=== PATIENT | female | born 1995 | race Caucasian/White ===

== ENCOUNTER 2017-09-14 17:07 | Observation (INO) | payer MEDICAID ==
[~2017-09-14] VITALS: Ht 162.6 cm; Wt 111.1 kg
[2017-09-14] MEDS ORDERED: PNV1TABL76 PO (17:49)
[2017-09-14 19:48] VITALS: BP 99/67
[2017-09-14 20:02] VITALS: BP 95/56
== END 2017-09-14 20:20 | disposition home or self-care (01) ==
LOC: L&D 17:07
PROVIDERS: ADMIT Specialist; ATTEND Specialist
DX: O36.0130 Maternal care for anti-D [Rh] antibodies, third trimester, not applicable or unspecified (principal); Z3A.31 31 weeks gestation of pregnancy
CPT/HCPCS: 36415; 86850; 86900; 86901; 90384; 96372; G0378